=== PATIENT | male | born 1980 | race Two or more races ===

== ENCOUNTER 2021-10-11 12:18 | Inpatient (IN) | payer MEDICAID, OTHER ==
[~2021-10-11] VITALS: Ht 170.2 cm; Wt 49.1 kg
[2021-10-11 16:34] LABS: Basophils # (auto) 0 10 ^3/uL (0-0.2); Basophils % (auto) 0.1 % (0.0-2.0); Eosinophils # (auto) 0 10 ^3/uL (0-0.8); Hemoglobin 19.5 g/dL (13.5-17.5); Lymphocytes % (auto) 6.4 % (10.0-50.0); Mean Corpuscular Hemoglobin 29.5 pg (28.0-32.0); Mean Corpuscular Hgb Conc. 34.2 g/dL (32.0-36.0); Mean Corpuscular Volume 86.3 fL (80.0-100.0); Monocytes # (auto) 1.6 10 ^3/uL (0-1.3); Monocytes % (auto) 10.7 % (0.0-12.0); Neutrophils # (auto) 12.6 10 ^3/uL (1.6-8.6); Neutrophils % (auto) 82.8 % (37.0-80.0); Nucleated Red Blood Cells % 0.2 %; Red Blood Cells 6.62 10^6/uL (4.5-5.90); Red Cell Distribution Width 13.4 % (11.8-14.3); White Blood Cell 15.2 10^3/uL (4.4-10.8)
[2021-10-11 16:35] LABS: Hematocrit 57.1 % (41.0-53.0)
[2021-10-11 16:54] LABS: Potassium 4.2 mmol/L (3.5-5.1)
[2021-10-11 17:01] LABS: Albumin 4.6 g/dL (3.4-5.0); BUN/Creatinine Ratio 12.5; Bilirubin, Total 0.2 mg/dL (0.2-1.0); Calcium 8.2 mg/dL (8.5-10.1); Total Protein 8.6 g/dL (6.4-8.2)
[2021-10-11] MEDS ORDERED: OXYCODONE W/ ACETAMINOPHEN 5/325MG TABLET PO ONE (19:30)
[2021-10-11] MEDS ORDERED: NITROGLYCERIN 0.4 MG SL TAB SL PRN (23:15)
[2021-10-11] MEDS ORDERED: MORPHINE SULFATE INJECTION 2 MG/ML SYRG IV PRN (23:15)
[2021-10-11] MEDS ORDERED: ONDANSETRON HCL 4 MG/2 ML VIAL IV PRN (23:15)
[2021-10-12] MEDS: SODIUM CHLORIDE 0.9% 1,000 ML IV SCH ×4 (00:43→23:09)
[2021-10-12] MEDS ORDERED: SODIUM CHLORIDE 0.9% 1,000 ML IV ONE (00:45)
[2021-10-12 03:56] LABS: Urine Bacteria NONE SEEN /hpf (None Seen); Urine Blood TRACE /uL (Negative); Urine WBC 7 /hpf (0 - 3)
[2021-10-12 05:30] LABS: Amphetamine Screen, Urine NEGATIVE (NEGATIVE); Barbiturate Scree,Urine NEGATIVE (NEGATIVE); Benzodiazephine Screen, Urine NEGATIVE (NEGATIVE); Cocaine Screen, Urine NEGATIVE (NEGATIVE); Opiate Scree,Urine NEGATIVE (NEGATIVE); Phencyclidine Screen, Urine NEGATIVE (NEGATIVE)
[2021-10-12 05:31] LABS: Cannabinoid Screen, Urine POSITIVE (NEGATIVE)
[2021-10-12 05:57] LABS: Basophils # (auto) 0 10 ^3/uL (0-0.2); Basophils % (auto) 0.1 % (0.0-2.0); Eosinophils # (auto) 0 10 ^3/uL (0-0.8); Hematocrit 49.1 % (41.0-53.0); Hemoglobin 16.6 g/dL (13.5-17.5); Lymphocytes # (auto) 0.9 10 ^3/uL (0.4-5.4); Lymphocytes % (auto) 7.9 % (10.0-50.0); Mean Corpuscular Hemoglobin 29.1 pg (28.0-32.0); Mean Corpuscular Hgb Conc. 33.9 g/dL (32.0-36.0); Mean Corpuscular Volume 85.9 fL (80.0-100.0); Monocytes # (auto) 1.6 10 ^3/uL (0-1.3); Monocytes % (auto) 13.7 % (0.0-12.0); Neutrophils # (auto) 9.3 10 ^3/uL (1.6-8.6); Neutrophils % (auto) 78.3 % (37.0-80.0); Nucleated Red Blood Cells % 0.2 %; Red Blood Cells 5.72 10^6/uL (4.5-5.90); Red Cell Distribution Width 13.2 % (11.8-14.3); White Blood Cell 11.9 10^3/uL (4.4-10.8)
[2021-10-12 06:39] LABS: Calcium 7.2 mg/dL (8.5-10.1)
[2021-10-12 06:42] LABS: BUN/Creatinine Ratio 18.5
[2021-10-12] MEDS: HYDROcodone-ACET 5/325MG TAB PO PRN (07:43)
[2021-10-12] MEDS: ASCORBIC ACID 500 MG TAB PO SCH ×2 (10:00→21:20)
[2021-10-12] MEDS: ZINC SULFATE 220mg CAP or TAB PO SCH (10:00)
[2021-10-12] MEDS: CHOLECALCIFEROL (VITD3) 2,000 UNIT CAP/TAB PO SCH (10:00)
[2021-10-12] MEDS: AZITHROMYCIN 250 MG TAB PO SCH (10:00)
[2021-10-12 10:57] LABS: Protein, Urine 20.7 mg/dL (0.0-11.9)
[2021-10-12 12:00] VITALS: BP 110/72
[2021-10-12 12:03] LABS: BUN/Creatinine Ratio 25.6; Calcium 7.8 mg/dL (8.5-10.1)
[2021-10-12 15:56] LABS: Protein, Urine 15.3 mg/dL (0.0-11.9)
[2021-10-12 16:00] VITALS: BP 95/55
[2021-10-12 18:28] LABS: Calcium 8.1 mg/dL (8.5-10.1); Potassium 3.7 mmol/L (3.5-5.1)
[2021-10-12] MEDS: ALBUTEROL SULF HFA 90MCG INH 200DOSE IN SCH (21:28)
[2021-10-12 21:51] VITALS: BP 109/70
[2021-10-12 22:46] LABS: BUN/Creatinine Ratio 30.8; Calcium 7.9 mg/dL (8.5-10.1); Potassium 3.8 mmol/L (3.5-5.1)
[2021-10-13 05:00] VITALS: BP 110/66
[2021-10-13 05:31] LABS: Hematocrit 40.2 % (41.0-53.0); Hemoglobin 13.7 g/dL (13.5-17.5); Mean Corpuscular Hemoglobin 29.4 pg (28.0-32.0); Mean Corpuscular Hgb Conc. 34.2 g/dL (32.0-36.0); Mean Corpuscular Volume 86.1 fL (80.0-100.0); Red Blood Cells 4.67 10^6/uL (4.5-5.90); Red Cell Distribution Width 13.2 % (11.8-14.3); White Blood Cell 6.1 10^3/uL (4.4-10.8)
[2021-10-13 05:36] LABS: Basophils % (manual) 0 (0.0-2.0); Blast Cells 0; Eosinophils % (manual) 0 (0-7); Metamyelocytes % 0; Myelocytes % 0; Promyelocytes % 0; Reactive Lymphocytes 0
[2021-10-13 05:56] LABS: Calcium 7.8 mg/dL (8.5-10.1); Potassium 3.5 mmol/L (3.5-5.1)
[2021-10-13 06:00] LABS: BUN/Creatinine Ratio 27.1; Uric Acid 4.4 mg/dL (3.5-7.2)
[2021-10-13] MEDS: ALBUTEROL SULF HFA 90MCG INH 200DOSE IN SCH ×3 (06:00→14:00)
[2021-10-13] MEDS: HYDROcodone-ACET 5/325MG TAB PO PRN ×2 (08:26→22:22)
[2021-10-13] MEDS: SODIUM CHLORIDE 0.9% 1,000 ML IV SCH ×2 (08:45→17:05)
[2021-10-13 09:00] VITALS: BP 104/56
[2021-10-13] MEDS: ASCORBIC ACID 500 MG TAB PO SCH ×2 (10:36→21:24)
[2021-10-13] MEDS: ZINC SULFATE 220mg CAP or TAB PO SCH (10:36)
[2021-10-13] MEDS: AZITHROMYCIN 250 MG TAB PO SCH (10:36)
[2021-10-13] MEDS: CHOLECALCIFEROL (VITD3) 2,000 UNIT CAP/TAB PO SCH (10:36)
[2021-10-13 11:39] LABS: Band Neutrophils % (manual) 2; Lymphocytes % (manual) 17 (10.0-50.0); Monocytes % (manual) 19 (0-12)
[2021-10-13 12:51] VITALS: BP 107/66
[2021-10-13 16:51] VITALS: BP 115/69
[2021-10-13 22:00] VITALS: BP 125/76
[2021-10-14 05:00] VITALS: BP 121/73
[2021-10-14] MEDS: SODIUM CHLORIDE 0.9% 1,000 ML IV SCH ×3 (06:11→07:55)
[2021-10-14] MEDS: ALBUTEROL SULF HFA 90MCG INH 200DOSE IN SCH (06:42)
[2021-10-14] MEDS: HYDROcodone-ACET 5/325MG TAB PO PRN (06:55)
[2021-10-14 07:37] LABS: Hematocrit 38.8 % (41.0-53.0); Mean Corpuscular Hemoglobin 29.1 pg (28.0-32.0); Mean Corpuscular Hgb Conc. 33.6 g/dL (32.0-36.0); Mean Corpuscular Volume 86.6 fL (80.0-100.0); Red Blood Cells 4.48 10^6/uL (4.5-5.90); Red Cell Distribution Width 13.2 % (11.8-14.3); White Blood Cell 7.2 10^3/uL (4.4-10.8)
[2021-10-14 07:39] LABS: Basophils % (manual) 0 (0.0-2.0); Blast Cells 0; Eosinophils % (manual) 0 (0-7); Metamyelocytes % 0; Myelocytes % 0; Promyelocytes % 0; Reactive Lymphocytes 0
[2021-10-14 07:44] LABS: BUN/Creatinine Ratio 18.8; Calcium 7.7 mg/dL (8.5-10.1); Potassium 3.1 mmol/L (3.5-5.1)
[2021-10-14 08:49] LABS: Band Neutrophils % (manual) 2; Lymphocytes % (manual) 18 (10.0-50.0); Monocytes % (manual) 19 (0-12)
[2021-10-14 09:00] VITALS: BP 98/57
[2021-10-14] MEDS ORDERED: ALBUTEROL SULF HFA 90MCG INH 200DOSE IN PRN (09:30)
[2021-10-14] MEDS: ASCORBIC ACID 500 MG TAB PO SCH (10:00)
[2021-10-14] MEDS: ZINC SULFATE 220mg CAP or TAB PO SCH (10:00)
[2021-10-14] MEDS: CHOLECALCIFEROL (VITD3) 2,000 UNIT CAP/TAB PO SCH (10:00)
[2021-10-14] MEDS: AZITHROMYCIN 250 MG TAB PO SCH (10:00)
[2021-10-14] MEDS ORDERED: ASCO500T11 PO (11:41)
[2021-10-14] MEDS ORDERED: CHOL1CAP47 PO (11:41)
[2021-10-14] MEDS ORDERED: ALBUAER3 IN (11:41)
[2021-10-14] MEDS ORDERED: ZINC220T6 PO (11:41)
[2021-10-14] MEDS ORDERED: POTASSIUM CHL 20 Meq TABLET PO ONE (11:45)
[2021-10-14] MEDS ORDERED: SODIUM CHLORIDE 0.9% 1,000 ML IV ONE (11:45)
[2021-10-14] MEDS ORDERED: POTASSIUM CHL 10MEQ/50ML 50 ML IV SCH (11:45)
[2021-10-14 12:28] VITALS: BP 98/57
[2021-10-14] MEDS ORDERED: POTA-180 PO (13:10)
[2021-10-15 11:49] LABS: Hepatitis B Surface Antibody Negative (Negative)
[2021-10-15 13:00] LABS: Hepatitis A Total Antibody Negative (Negative)
[2021-10-15 14:20] LABS: Hepatitis C Antibody Negative (Negative)
== END 2021-10-14 13:00 | disposition home or self-care (01) | DRG 137 ==
LOC: ER 12:18 → TELE 23:12 → TELE-WESTW 10-12 10:15
PROVIDERS: ADMIT Hospitalist; ATTEND Hospitalist
DX: U07.1 COVID-19 (principal); N17.0 Acute kidney failure with tubular necrosis; J12.82 Pneumonia due to coronavirus disease 2019; R65.10 Systemic inflammatory response syndrome (SIRS) of non-infectious origin without acute organ dysfunction; J98.11 Atelectasis
CPT/HCPCS: 36415; 71045; 74176; 76775; 80048; 80053; 80307; 81001; 82550; 82570; 83036; 83690; 84100; 84156; 84166; 84300; 84443; 84550; 85007; 85025; 85027; 86704; 86706; 86708; 86803; 87340; 87426; 94640; 96360; G0378; J2405